=== PATIENT | female | born 1985 | race Caucasian/White ===

== ENCOUNTER 2019-05-17 18:10 | Inpatient (IN) ==
[2019-05-17] MEDS ORDERED: ZOFRAN IV ONE (18:53)
[2019-05-17] MEDS ORDERED: TORADOL IV ONE (18:53)
[2019-05-17 19:02] LABS: BASO# 0.03 X1000 (0.0-0.2); BASO% 0.1 % (0.0-0.8); EOS# 0.01 X1000 (0.0-0.7); HEMATOCRIT 45.7 % (37.0-47.0); HEMOGLOBIN 15.2 g/dL (12.0-16.0); IMM GRAN# 0.12 X1000 (0.0-0.04); IMM GRAN% 0.4 % (0.0-0.5); LYMPH# 0.99 X1000 (1.2-3.4); LYMPH% 3.6 % (20.5-51.1); MCH 29.7 PG (27-31); MCHC 33.3 g/dL (33-37); MCV 89.3 FL (81-99); MONO# 1.84 X1000 (0.11-0.59); MONO% 6.7 % (1.7-9.3); MPV 9.2 FL (7.4-10.4); NEUT# 24.58 X1000 (1.4-6.5); NEUT% 89.2 % (42.2-75.2); PLT 473 X1000 (130-400); RBC 5.12 XMIL (4.2-5.4); RDW 12.5 % (11.5-14.5); WBC 27.57 X1000 (4.8-10.8)
[2019-05-17 19:05] LABS: URINE SOURCE CLEAN CATCH
[2019-05-17 19:08] LABS: BILIRUBIN URINE NEGATIVE (NEGATIVE); BLOOD URINE MODERATE (NEGATIVE); COLOR YELLOW; GLUCOSE URINE NEGATIVE (NEGATIVE); KETONE URINE TRACE mg/dL (NEGATIVE); LEUKOCYTES URINE NEGATIVE (NEGATIVE); NITRITE URINE NEGATIVE (NEGATIVE); PROTEIN URINE 100 mg/dL (NEGATIVE); TURBIDITY URINE HAZY (CLEAR); UROBILINOGEN URINE 2 mg/dL (NORMAL)
[2019-05-17 19:16] LABS: UR EPITHELIAL CELLS >10 /HPF (<10); URINE BACTERIA 3+ /HPF; URINE RBC >40 /HPF (<10); URINE WBC 20-40 /HPF (<10)
[2019-05-17] MEDS ORDERED: NS 1,000 ML IV ONE ×2 (19:17→23:17)
--- NOTE | 2019-05-17 19:29 | PROVIDER DOCUMENTATION ---
This chart was entered by Hemalatha Hennessy Scribe, acting as scribe for Roxanne Dumas CRNP. HPI-Abdominal Pain/GI Problem - General Chief Complaint: Abdominal Pain Stated Complaint: ABD PAIN Time Seen by Provider: 05/17/19 18:20 Source: patient Allergies/Adverse Reactions: Patient Allergies Allergy/AdvReac Type Severity Reaction Status Date / Time tramadol Allergy Unknown Verified 01/19/19 00:55 Home Medications: Home Medication List Medication Instructions Recorded Confirmed Last Taken Type NK [No Home Medications] 01/19/19 05/17/19 Unknown History - History of Present Illness-ABD Nature of Presenting Problems: Patient is a 34yo F who presents with complaints of RLQ abdominal pain, nausea, vomiting, and subjective fever that began yesterday. Reports she believes "her umbilical hernia has shifted from throwing up." Patient reports last BM was 2 days ago and was normal. Reports she has been unable to keep food down. States she has previously had a hernia repair with mesh 10 years ago. Denies diarrhea, dysuria, CP, or SOB. Abdominal Pain Onset Location: reports: RLQ Pain Radiation: reports: no radiation Quality of Pain: reports: pressure, throbbing Severity in ED: reports: moderate Onset/Duration: reports: 24 hours ago Timing: reports: still present Activities at Onset: reports: none Modifying Factors: improves with: nothing Associated Symptoms: reports: fever/chills, nausea, vomiting. denies: chest pain, diarrhea, sensory/motor loss Last BM: 2 days ago Dark Stools Present?: reports: none noticed Rectal Bleeding: reports: none # of Diarrhea Episodes: 0 Rectal Pain: reports: none Emesis Description: reports: clear, other (undigested food) Bruising or Bleeding Gums?: No Similar Symptoms Previously?: Yes Recently seen or treated by another doctor?: No Review of Systems - Adult - REVIEW OF SYSTEMS - ADULT Constitutional: reports: see HPI, fever. denies: chills, fatique, night sweats Eyes: reports: no symptoms reported Ears, Nose, Mouth & Throat: reports: no symptoms reported Cardiovascular: reports: no symptoms reported. denies: chest pain, palpitations Respiratory: reports: no symptoms reported. denies: cough, shortness of breath Gastrointestinal: reports: see HPI, abdominal pain, nausea, vomiting. denies: hematemesis, diarrhea, poor appetite Genitourinary: reports: no symptoms reported. denies: dysuria, discharge, frequency Musculoskeletal: reports: no symptoms reported Integumentary: reports: no symptoms reported Neurological: reports: no symptoms reported Psychiatric: reports: no symptoms reported Endocrine: reports: no symptoms reported Past History - Adult - PAST MEDICAL HISTORY-ADULT Review of Records: reports: Nursing Assessment Review, Medications Reviewed Major Childhood Illnesses: reports: denies history Cardiovascular: reports: denies history Respiratory: reports: denies history Gastrointestinal: reports: denies history Obstetrical/Gynecological: reports: denies history Genitourinary: reports: denies history Musculoskeletal: reports: denies history Neurological: reports: Seizures/Epilepsy Psychiatric: reports: anxiety, bipolar, other (panic attacks, adhd) Endocrine/Immune: reports: denies history Other Conditions: reports: denies history - PRIOR SURGERIES/PROCEDURES Surgical/Procedure History: reports: reviewed, not pertinent - PRIOR HOSPITALIZATIONS Prior Hospitalizations: reports: none - IMMUNIZATION STATUS Childhood Immunizations: See Nurse Assessment Flu Vaccine: See Nurse Assessment - FAMILY HISTORY Family History: reviewed, not pertinent - SOCIAL HISTORY Smoking: cigarettes, greater than 1 pack/day Provider spent 3-5 mins advising pt. on dangers of tobacco.: Discussed manners to quit use, and f/u contacts for add'l counseling. Substance Use: amphetamines (IV user; last use 7 days ago) Physical Exam-General - PHYSICAL EXAM-ADULT Initial Vital Signs Reviewed: Yes - CONSTITUTIONAL General Appearance: alert, mild distress. negative: lethargic, slow to respond, obtunded - EYES Eyes: PERRL/EOMI, pink conjunctivae. negative: EOM palsy - HEAD, EARS, NOSE, MOUTH & THROAT HENMT: normocephalic/atraumatic, moist mucous membranes - NECK Neck: non-tender, full range of motion, supple, normal inspection - RESPIRATORY Respiratory: chest non-tender, lungs clear, normal breath sounds, no pleuratic chest pain, no respiratory distress, no accessory muscle use. negative: crackles, rales, rhonchi, stridor, wheezing - CARDIOVASCULAR Cardiovascular: tachycardia (108) - GASTROINTESTINAL (ABDOMEN) Abdominal Exam: normal bowel sounds, soft, no pulsatile mass, tenderness (RLQ TTP), hernia, McBurney's point tenderness, Gunn's sign. negative: non tender, distended, rebound, psoas sign, Rovsing's sign - MUSCULOSKELETAL Back Exam: normal inspection Extremity: normal range of motion, non-tender, normal gait, normal inspection - SKIN Integumentary: normal color, warm/dry. negative: cyanosis, jaundice, mottled, pallor - NEUROLOGIC Neurologic: grossly normal, no motor/sensory deficits - PSYCHIATRIC Psych/Mental Status: normal mood/affect, normal thought content, normal thought process, oriented x 3 Progress - PLAN OF CARE/RESULTS Progress/Plan/Lab Results: Vital Signs - 8 hr 05/17/19 18:16 Temperature 97.6 F Pulse Rate 108 H Respiratory Rate 18 Blood Pressure 120/81 O2 Sat by Pulse Oximetry 100 Bedside Urine ED: Urine Bedside Start: 05/17/19 18:34 Freq: ORDERED Status: Active Protocol: Activity Type Activity Date Activity User E-Sign Co-Sign Detail Recorded Client Recorded Date Recorded By Document 05/17/19 18:52 [id number] 05/17/19 18:52 [id number] 05/17/19 18:52 Point of Care [Bedside Point of Care] -Lot # [id number] - Results Negative -Control Line Visible? Yes Orders Category Date Time Status ED: Orthostatic Vital Signs (E DIRECTED Care 05/17/19 18:36 Active ED: Urine Bedside ORDERED Care 05/17/19 18:34 Active Saline Loc NOW Care 05/17/19 18:37 Active CBC WITH ELECTRONIC DIFF [HEME] Stat Lab 05/17/19 18:50 Results COMPREHENSIVE METABOLIC PANEL [CHEM] Stat Lab 05/17/19 18:50 Received LIPASE [CHEM] Stat Lab 05/17/19 18:50 Received URINALYSIS W/POSS RFLX CULT [URINALYSIS] Stat Lab 05/17/19 18:52 Ordered Ketorolac [Toradol] Med 05/17/19 18:53 Discontinued 30 mg IV NOW ONE Ondansetron [Zofran] Med 05/17/19 18:53 Discontinued 4 mg IV NOW ONE 1849: Patient requests something for pain, however reports she previously was addicted to opiates and requests a non-opioid medication. 2040: Lab results, imaging results, and need for admission discussed with patient who agrees with and verbalizes understanding. Result Diagrams: 05/17/19 19:18 05/17/19 18:50 - REASSESSMENT Reassessment #1 Time Reassessed: 19:59 Status: worsening Reassessment Comment: Pt reports pain has not improved post Toradol; requests other meds - XRAY 1 XRAY Study: Chest Impression: Normal, See EMR Report ( CHEST-1 VIEW - 05/17/2019 INDICATION: SEPSIS PROTOCOL COMPARISON: 12/19/2018 FINDINGS: The lungs are normally expanded and clear. Heart size and mediastinal contours are normal. No pn eumothorax or pleural effusion. IMPRESSION: Negative exam. Electronically signed by Syed Hernandez 05/17/2019 8:29 PM 05/17/192028) - CT/MRI 1 CT Study: Abdomen, Pelvis Impression: See EMR Report ([facility] - [address] , [address] [address] [facility] - [address] [place] [address] Department of Imaging Patient: PRIETO MELCHORADM Date: 05/17/19MR#: [id number] : 1985ADM Status: REG [facility]#: [id number] Age/Sex: 34/FRoom/Bed: Loc: P.ED Ordering Physician: Roxanne Sung Family Physician: None,PCP Reason for Procedure: RLQ abdominal pain; nausea/vomiting Signed CT ABD/PELVIS W/IV CONT ONLY - 05/17/2019 INDICATION: RLQ abdominal pain; nausea/vomiting COMPARISON: None FINDINGS: The lung bases are clear and the heart size is normal. The gallbladder is very distended with wall thickening and surrounding free fluid. There is moderate fluid distention of the stomach. There is a small fat- containing umbilical ventral hernia. There is a small amount of pelvic free fluid. There is moderate constipation. There is an IUD in the uterus. This appears to be in good position. Urinary bladder and rectum are normal. Bones are intact. IMPRESSION: 1. Acute cholecystitis. 2. Small fat-containing epigastric ventral hernia. 3. Moderate constipation. Trace pelvic free fluid, nonspecific. 4. This report was discussed with Prieto Dumas on 05/17/2019 at 8:40 PM and was readback. This exam was performed using automated exposure control, adjustment of mA or kV according to patient size, and/or use of iterative reconstruction technique Electronically signed by Syed Hernandez 05/17/2019 8:41 PM 05/17/192040 Interpreting Physician: Syed Hernandez MD Dictated Date/Time: 05/17/192028 cc: Roxanne Dumas; None,PCP) - CONSULTS/PCP/HOSPITALIST Notification #1 *Consult/PCP/Hospitalist*: Dr. Hernandez/Radiology Time Discussed: 20:42 Reason/Comments: CT results discussed - acute cholecystitis Consult Disposition: other (CT results discussed) #2 Consult: Dr. Morse, Surgeon Time Discussed: 20:49 Reason/Comments: Acute cholecystitis on CT; leukocytosis Consult Disposition: other (Will evaluate CT and call back) #3 Consult: Dr. Morse, Surgeon Time Discussed: 21:05 Reason/Comments: discussed pt being transferred to [facility], will call hospitalist at [facility]. Consult Disposition: other (Requests Zosyn q6hr; pain medication; states he will operate in the morning) Departure - Departure Date of Disposition Decision: 05/17/19 Time of Disposition Decision: 21:40 DIAGNOSIS: Acute cholecystitis, Amphetamine user Leukocytosis, unspecified Qualifiers: Leukocytosis type: unspecified Qualified Code(s): D72.829 - Elevated white blood cell count, unspecified UTI (urinary tract infection) Qualifiers: Urinary tract infection type: acute cystitis Hematuria presence: with hematuria Qualified Code(s): N30.01 - Acute cystitis with hematuria Disposition: ADMITTED INPATIENT 09 Certified Medical Emergency: Emergent Condition: Stable - Critical Care Note This patient required my direct & personal management of CC.: No Attestation - Physician/ MARY ANN Attestation Patient care was provided by Advanced Practice Provider:: Yes Advanced Practice Provider:: Roxanne Dumas Advanced Practice Provider documentation review:: The Mid-level provider documentation, treatment plan and medical decision making was reviewed by the physician who agrees with all treatment and medical decision making by the MLP. The physician spent face to face time with patient:: No Advanced Practice Provider documentation review:: Supervising physician onsite and consulted in the evaluation and care of this patient. The physician did not have a face to face encounter with the patient. Additional Progress - ADDITIONAL CONSULTS #4 Consult: Dr. Stahl, Hospitalist Time Discussed: 21:38 Reason/Comments: Acute cholecystitis Consult Disposition: Admit (Consult Dr. Morse for surgery) This chart was documented by the indicated scribe, (Hemalatha Hennessy Scribe) and accurately reflects the services I performed and decisions made by , Rxoanne Dumas CRNP, as attested by the provider's signature.
[2019-05-17 19:44] LABS: BASO# 0.03 X1000 (0.0-0.2); BASO% 0.1 % (0.0-0.8); HEMATOCRIT 44.1 % (37.0-47.0); HEMOGLOBIN 14.5 g/dL (12.0-16.0); IMM GRAN# 0.07 X1000 (0.0-0.04); IMM GRAN% 0.3 % (0.0-0.5); LYMPH# 1.14 X1000 (1.2-3.4); LYMPH% 4.1 % (20.5-51.1); MCH 29.4 PG (27-31); MCHC 32.9 g/dL (33-37); MCV 89.3 FL (81-99); MONO# 1.91 X1000 (0.11-0.59); MONO% 6.9 % (1.7-9.3); MPV 8.8 FL (7.4-10.4); NEUT# 24.41 X1000 (1.4-6.5); NEUT% 88.6 % (42.2-75.2); PLT 471 X1000 (130-400); RBC 4.94 XMIL (4.2-5.4); RDW 12.4 % (11.5-14.5); WBC 27.56 X1000 (4.8-10.8)
[2019-05-17 19:48] LABS: AGAP 15; ALBUMIN 4.6 g/dL (3.5-5.0); ALKALINE PHOSPHATASE 75 U/L (32-104); BUN 20 mg/dL (8-22); CALCIUM 9.6 mg/dL (8.8-10.2); CHLORIDE 100 mmol/L (98-107); COSMO 277; CREATININE 0.5 mg/dL (0.5-0.9); ESTIMATED GFR > 60; GLUCOSE 150 mg/dL (70-104); GOT 50 U/L (10-30); GPT 44 U/L (10-36); LIPASE 10 U/L (13-60); POTASSIUM 4.4 mmol/L (3.5-5.1); SODIUM 136 mmol/L (136-145); TCO2 21 mmol/L (25-35); TOTAL PROTEIN 7.5 g/dL (6.3-8.3)
[2019-05-17 19:57] LABS: INR 1.01; PROTIME 13.8 Seconds (11.0-16.0)
[2019-05-17] MEDS ORDERED: MORPHINE IV ONE (19:59)
[2019-05-17] MEDS ORDERED: ROCEPHIN 1 GM in NS 50 ML IV ONE (20:23)
--- NOTE | 2019-05-17 20:32 | Diag Imaging Result Doc PS360 ---
CHEST-1 VIEW - 05/17/2019 INDICATION: SEPSIS PROTOCOL COMPARISON: 12/19/2018 FINDINGS: The lungs are normally expanded and clear. Heart size and mediastinal contours are normal. No pneumothorax or pleural effusion. IMPRESSION: Negative exam. Electronically signed by Syed Hernandez 05/17/2019 8:29 PM
[2019-05-17] MEDS ORDERED: ZOSYN 3.375 GM in NS 50 ML IV ONE (20:42)
--- NOTE | 2019-05-17 20:43 | Diag Imaging Result Doc PS360 ---
CT ABD/PELVIS W/IV CONT ONLY - 05/17/2019 INDICATION: RLQ abdominal pain; nausea/vomiting COMPARISON: None FINDINGS: The lung bases are clear and the heart size is normal. The gallbladder is very distended with wall thickening and surrounding free fluid. There is moderate fluid distention of the stomach. There is a small fat-containing umbilical ventral hernia. There is a small amount of pelvic free fluid. There is moderate constipation. There is an IUD in the uterus. This appears to be in good position. Urinary bladder and rectum are normal. Bones are intact. IMPRESSION: 1. Acute cholecystitis. 2. Small fat-containing epigastric ventral hernia. 3. Moderate constipation. Trace pelvic free fluid, nonspecific. 4. This report was discussed with Linda Dumas on 05/17/2019 at 8:40 PM and was readback. This exam was performed using automated exposure control, adjustment of mA or kV according to patient size, and/or use of iterative reconstruction technique Electronically signed by Syed Hernandez 05/17/2019 8:41 PM
[2019-05-17] MEDS ORDERED: DILAUDID IV PRN (21:58)
[2019-05-17] MEDS ORDERED: NS 1,000 ML IV SCH (22:00)
[2019-05-17] MEDS ORDERED: NS 1,000 ML ONE (22:32)
[2019-05-17 23:05] LABS: UR AMPHETAMINES QUAL PRESUMPTIVE POSITIVE (NONE DETECT); UR BARBITUATES QUAL NONE DETECTED (NONE DETECT); UR BENZODIAZEPIN QUAL PRESUMPTIVE POSITIVE (NONE DETECT); UR CANNABINOIDS QUAL PRESUMPTIVE POSITIVE (NONE DETECT); UR COCAINE QUAL NONE DETECTED (NONE DETECT); UR METHADONE QUAL NONE DETECTED (NONE DETECT); UR METHAMPHETAMINE QUAL PRESUMPTIVE POSITIVE (NONE DETECT); UR OPIATES QUAL NONE DETECTED (NONE DETECT); UR OXYCODONE QUAL NONE DETECTED (NONE DETECT); UR PCP QUAL NONE DETECTED (NONE DETECT); UR PROPOXYPHENE QUAL NONE DETECTED (NONE DETECT); UR TCA QUAL NONE DETECTED (NONE DETECT)
[2019-05-18] MEDS: MORPHINE IV PRN ×5 (00:11→19:38)
[2019-05-18] MEDS: ZOFRAN IV PRN (00:12)
[2019-05-18] MEDS ORDERED: ZOSYN 3.375 GM in NS 50 ML IV SCH (03:00)
[2019-05-18] MEDS: ZOSYN 3.375 GM in NS 50 ML IV SCH ×4 (04:01→21:32)
--- NOTE | 2019-05-18 06:06 | HISTORY AND PHYSICAL ---
CHIEF COMPLAINT: Fever for 2 days. HISTORY OF PRESENT ILLNESS: Ms. Linda Crawley is a 34-year-old female who does not have any significant past medical history, except for anxiety, depression, bipolar disorder, and also substance abuse. She presents to the hospital because of fever for about 2 days following which she also developed pain in the region of periumbilical region which later migrated to the right upper quadrant area. This pain is constant on a scale of 0 to 10. It is 8/10. It is made worse by lying down. She has had associated nausea with vomiting. No diarrhea. No constipation. The patient did have a CT scan of the abdomen and pelvis done which showed evidence of gallbladder that is very distended with wall thickening, and also surrounding free fluid. The patient initially presented to [facility], but has been transferred down to [facility] for further management. PAST MEDICAL HISTORY: Anxiety disorder as well as a bipolar disorder. SOCIAL HISTORY: She smokes cigarettes. MEDICATIONS: She uses methamphetamine. Does not use alcohol. ALLERGIES: She is allergic to tramadol. PAST SURGICAL HISTORY: She has had surgery in the periumbilical area (hernia repair). FAMILY HISTORY: Positive for cancer as well as diabetes. MEDICATIONS: She takes Neurontin 100 mg p.o. twice a day. REVIEW OF SYSTEMS: Constitutional: She has fever, PEDIATRIC CNS: No headaches. Eyes: No blurred vision. ENT: No sinus problems. Cardiovascular: No chest pain. Respiratory: She has shortness of breath. : No dysuria. Musculoskeletal: No joint pains. Dermatology: No skin lesions. Hematology: No bleeding problems. Psychiatric: She has anxiety with depression as well as bipolar disorder. Endocrine: No thyroid disease or diabetes. Allergy/Immunology: No symptoms of allergic rhinitis. PHYSICAL EXAMINATION: VITAL SIGNS: Temperature 98.1 degrees, pulse 114, respiratory rate 20, blood pressure 121/76, and O2 saturation is 99%. HEENT: Atraumatic, normocephalic. She is anicteric. Extraocular movements intact. No oral lesions. NECK: No lymphadenopathy or thyromegaly. CARDIOVASCULAR: S1, S2. RESPIRATORY: There is evidence of good air entry bilaterally. ABDOMEN: Soft. She has tenderness in the right upper quadrant area. No masses felt. EXTREMITIES: No evidence of edema. CENTRAL NERVOUS SYSTEM: No obvious focal deficit noted. LABORATORY DATA: WBC 27.56, hematocrit 44.1, platelets 471,000, and INR is 1.01. Sodium is 136, potassium 4.4, chloride 100, bicarb is 21, BUN is 20, creatinine 0.5, and glucose is 150. AST 50, ALT is 44. Lipase is 10. UA shows a moderate amount of blood 20 to 40 WBCs per high-power field. Urine drug screen positive for methamphetamine as well as benzodiazepine as well as cannabinoids. CT scan of the abdomen and pelvis shows evidence of acute cholecystitis. Small fat containing epigastric ventral hernia. Moderate constipation. Trace pelvic free fluid. ASSESSMENT AND PLAN: 1. Acute cholecystitis. Maintain patient NPO and IV fluids/ antibiotics. Optimize pain control. Place patient on antiemetic. Consult with Surgery for cholecystectomy. 2. Small fat containing epigastric ventral hernia. Consult with Surgery. 3. Substance abuse, aware. Need counseling concerning abstinence. 4. Urinary tract infection. Obtain urine and blood cultures. Start patient on empiric antibiotics. 5. Abnormal liver function tests. Check hepatitis panel as well as abdominal ultrasound. 6. Leukocytosis most likely secondary to acute cholecystitis. 7. Hyperglycemia. Check hemoglobin A1c. 8. Deep vein thrombosis prophylaxis. Sequential compression devices. 9. Gastrointestinal prophylaxis. Proton pump inhibitor. cc: Ricky Stahl MD MTDD
[2019-05-18 06:44] LABS: BASO# 0.02 X1000 (0.0-0.2); BASO% 0.1 % (0.0-0.8); EOS# 0.04 X1000 (0.0-0.7); EOS% 0.2 % (0.0-10.0); HEMATOCRIT 40.4 % (37.0-47.0); IMM GRAN# 0.06 X1000 (0.0-0.04); IMM GRAN% 0.3 % (0.0-0.5); LYMPH# 1.66 X1000 (1.2-3.4); LYMPH% 9.3 % (20.5-51.1); MCH 29.3 PG (27-31); MCHC 32.2 g/dL (33-37); MCV 91.2 FL (81-99); MONO# 1.24 X1000 (0.11-0.59); MONO% 6.9 % (1.7-9.3); MPV 8.8 FL (7.4-10.4); NEUT# 14.83 X1000 (1.4-6.5); NEUT% 83.2 % (42.2-75.2); PLT 368 X1000 (130-400); RBC 4.43 XMIL (4.2-5.4); RDW 12.5 % (11.5-14.5); WBC 17.85 X1000 (4.8-10.8)
[2019-05-18 07:15] LABS: AGAP 9; ALB/GLOB RATIO 1.5; ALBUMIN 3.6 g/dL (3.5-5.0); ALKALINE PHOSPHATASE 100 U/L (32-104); BUN 13 mg/dL (8-22); CALCIUM 8.6 mg/dL (8.8-10.2); CHLORIDE 100 mmol/L (98-107); COSMO 271; CREATININE 0.6 mg/dL (0.5-0.9); ESTIMATED GFR > 60; GLUCOSE 121 mg/dL (70-104); GOT 141 U/L (10-30); GPT 170 U/L (10-36); POTASSIUM 3.7 mmol/L (3.5-5.1); SODIUM 135 mmol/L (136-145); TCO2 26 mmol/L (25-35)
--- NOTE | 2019-05-18 09:13 | GENERAL SURGERY CONSULTATION ---
DATE: 05/18/2019 CHIEF COMPLAINT: Right upper quadrant pain and tenderness. HISTORY OF PRESENT ILLNESS: This is a 34-year-old, white female, who has had a 2 to 3-day history of right upper quadrant pain and fever. She has also had vomiting. She presented to the emergency department last night. CT scan shows a very dilated gallbladder with thickened cabrales and pericholecystic inflammation. The ultrasound supported that finding. PAST MEDICAL HISTORY: She has a past medical history of anxiety disorder, bipolar disorder. HOME MEDICATIONS: She has no known home medications. ALLERGIES: She is allergic to tramadol. SOCIAL HISTORY: She is an admitted illicit drug user. She does use methamphetamines. She apparently has a drug screen positive for benzodiazepines and cannabinoids as well. She denies alcohol usage. PAST SURGICAL HISTORY: Includes a hernia repair at the umbilicus by Dr. Paul many years ago. FAMILY HISTORY: Pertinent for cancer and diabetes. REVIEW OF SYSTEMS: Negative in all 10 subsystems, except for the psychiatric, which she reports as having anxiety, occasional depression, and bipolar disorder. PHYSICAL EXAMINATION: Vital Signs: Her temperature is 99.6 degrees, heart rate 98, blood pressure 124/72, respiratory rate 21. Neck: No cervical adenopathy. Lungs: Bilateral breath sounds. Heart: Regular rate and rhythm. Abdomen: She is exquisitely tender in the right upper quadrant. She does have a supraumbilical hernia that is reducible. Extremities: No peripheral edema. Neurologic: She is awake and alert. LABORATORY DATA: Her white count yesterday was 27,000. Today, it is 18,000 with a left shift. Her total bilirubin is 1.2, AST up to 141, ALT up to 170, alkaline phosphatase is 100. ASSESSMENT: Acute cholecystitis. PLAN: Laparoscopic cholecystectomy, if possible. I discussed the fact that she might have to have an open procedure. We discussed the benefits and risks. She understands and she wants to proceed. cc: Campos Morse MD
[2019-05-18] MEDS ORDERED: SODIUM CHLORIDE 0.9% ONE (09:24)
[2019-05-18] MEDS ORDERED: SENSORCAINE-MPF 0.5%/EPI 1:200,000 ONE (09:24)
[2019-05-18] MEDS ORDERED: LR 1,000 ML ONE (09:24)
[2019-05-18] MEDS ORDERED: DIPRIVAN 1% ONE (09:39)
[2019-05-18] MEDS ORDERED: ZOFRAN ONE (09:39)
[2019-05-18] MEDS ORDERED: QUELICIN (DOSE) ONE (09:39)
[2019-05-18] MEDS ORDERED: XYLOCAINE-MPF 2% ONE (09:39)
[2019-05-18] MEDS ORDERED: DECADRON ONE (09:39)
[2019-05-18] MEDS ORDERED: ZEMURON ONE ×2 (09:39→10:51)
[2019-05-18] MEDS ORDERED: FENTANYL ONE ×2 (09:44→10:58)
[2019-05-18] MEDS ORDERED: PRECEDEX ONE (10:00)
--- NOTE | 2019-05-18 10:57 | Diag Imaging Result Doc PS360 ---
US ABDOMEN-COMPLETE - 05/17/2019 INDICATION: cholecystitis COMPARISON: CT from earlier 05/17/2019 FINDINGS: There is some amorphous echogenic material in the gallbladder as well as some shadowing stones. There is gallbladder distention and wall thickening. There is some free fluid around the gallbladder and pancreas. Common bile duct measures 3 mm. There are bilateral renal cysts. Otherwise both kidneys are normal. The liver and spleen are normal. Spleen size is 11.1 x 3.6 x 11.1 cm. Sonographic Gunn sign is positive. Aorta, IVC, and main portal vein are patent. IMPRESSION: 1. Cholecystitis. 2. Nonspecific edema/fluid around the gallbladder and pancreas. Electronically signed by Syed Hernandez 05/18/2019 10:55 AM
[2019-05-18] MEDS ORDERED: NEOSTIGMINE ONE (11:00)
[2019-05-18] MEDS ORDERED: ROBINUL ONE (11:01)
[2019-05-18] MEDS ORDERED: BRIDION ONE (11:30)
--- NOTE | 2019-05-18 12:07 | OPERATIVE NOTE ---
PROCEDURE DATE: 05/18/2019 PROCEDURE PERFORMED: Laparoscopic cholecystectomy with operative cholangiogram. SURGEON: Campos Morse MD. TURBO GENERATOR OILER: Stef PREOPERATIVE DIAGNOSIS: Acute calculous cholecystitis. POSTOPERATIVE DIAGNOSIS: Acute calculous cholecystitis. FINDINGS: The cholangiogram revealed a normal size common duct, free flow in the duodenum. No intraluminal filling defects were seen. There was peritonitis upon entering the abdominal cavity. DESCRIPTION OF PROCEDURE: After satisfactory general endotracheal anesthesia achieved, abdomen is prepped and draped in a sterile fashion. The patient had previous umbilical hernia surgery with repair of a hernia. She has a recurrent hernia. So, we chose to go in the mid epigastrium first. We anesthetized the skin with local and then made a vertical incision, used 11 trocar Optiview technique to enter the abdominal cavity. We insufflated through this trocar. Under direct visualization, we introduced a 5 trocar at midclavicular line, a 5 trocar near the anterior axillary line, and an 11 mm trocar to the left of the midline in order to gain access to the right upper quadrant and the gallbladder. There was quite a bit of biliary peritonitis and cloudy fluid. We were able to take the omentum off the fundus. We then were able to introduce the aspirating needle and decompress the gallbladder which was very distended and thick walled. After that, we were able to grasp it with a ratcheted Allis grasper and reflect it cephalad. A large stone was noted in the infundibulum. We used a bulldog to grasp the infundibulum. We then bluntly dissected the tissue around the triangle. We did this until we obtained a critical view. We then clipped the cystic duct near the junction of the gallbladder, incised the cystic duct, introduced a Reggie catheter, shot a cholangiogram using a Reggie catheter. The findings above were noted. We removed the cholangiogram catheter, clipped the cystic duct on the opposite side of cystic ductotomy x2 and then transected it. The cystic artery was clipped proximally x2 and divided. We used the cautery spatula to then dissect the gallbladder away from the liver. After completely the gallbladder from liver, we placed the EndoCatch, placed the gallbladder within the bag and then had to enlarge the fascial incision in the supraumbilical trocar site to remove the gallbladder in the bag. We replaced the 11 trocar, used Xeroform to close the defect enough to reinsufflate. We then looked back, and we then irrigated and aspirated, even using a 10 mm suction to evacuate all the subhepatic fluid and blood. Hemostasis was satisfactory. We then used a Christopher drain and passed it through the epigastric trocar site, out the anterior axillary line trocar site and placed it in the subhepatic space. We secured it to the skin with 3-0 nylon. We then desufflated and removed our trocars under direct visualization. We used 2-0 Polysorb fascial stitches to close the fascia in the supraumbilical trocar site as well as the epigastric trocar site. We then closed the skin at each incision with 4-0 Polysorb subcuticular stitches. Sterile OpSites were applied. She tolerated it well and was sent to the recovery room in satisfactory condition. cc: Campos Morse MD
--- NOTE | 2019-05-18 12:12 | Diag Imaging Result Doc PS360 ---
OPERATIVE CHOLANGIOGRAM - 05/18/2019 INDICATION: CHOLECYSTECTOMY TECHNIQUE: The exam was performed by the patient's surgeon. One image was obtained. COMPARISON: Ultrasound from 05/17/2019 FINDINGS: Contrast was infused into the cystic duct. This outlines a normal common bile duct. No strictures or filling defects. There is some passage of contrast into the duodenum. IMPRESSION: No complication. Electronically signed by Syed Hernandez 05/18/2019 12:10 PM
[2019-05-18] MEDS: ATIVAN IV PRN ×2 (14:56→19:38)
--- NOTE | 2019-05-18 16:55 | PROGRESS NOTE ---
DATE: 05/18/2019 SUBJECTIVE: This patient is lying comfortably in bed. She is status post laparoscopic cholecystectomy with operative cholangiogram. At this moment, she is not complaining of too much pain, bowel sounds are present but a little bit decreased, surgery department on board. OBJECTIVE: Vital Signs: Temperature 100.7 degrees, pulse 110, respiratory rate 19, blood pressure 100/54, oxygen saturation 99 on room air. HEENT: Head normocephalic, no trauma. PERRLA. Neck: Supple. No JVD. No masses. Central trachea. Chest: Clear to auscultation. No wheezing. No rales. Abdomen: Soft, slightly distended. Positive bowel sounds but decreased. She does have a drain coming out from the right side of her belly, and multiple small scars from a laparoscopic procedure. Extremities: No edema. No clubbing, no cyanosis. Neurological: The patient is awake, alert, and oriented x3. No focal deficits. LABORATORY: hemoglobin 13, hematocrit 40.4, platelets 368,000. Sodium 135, potassium 3.7, chloride 100, bicarbonate 26, BUN 13, creatinine 0.6, glucose 121, calcium 8.6, AST 141, ALT 170, alkaline phosphatase 100. ASSESSMENT AND PLAN: 1. Acute calculous cholecystitis status post laparoscopic cholecystectomy with operative cholangiogram. Cholangiogram revealed a normal-sized common duct, free flow in the duodenum. No intraluminal filling defects were seen, there was peritonitis upon entering the abdominal cavity. 2. Peritonitis, continue with IV antibiotics. She has been placed on a diet but I will put her on gentle intravenous fluids until she is able to eat better. 3. Polysubstance abuse, this patient tested positive for amphetamine, methamphetamine, benzodiazepines and cannabinoids. She does not have a primary care doctor, this patient has been highly advised against drug use. I will continue with daily cessation education. 4. Tobacco abuse. This patient also has been advised against tobacco use. I will continue with daily cessation education as well. 5. Leukocytosis likely due to #1 and 2. 6. Abnormal LFTs. We have requested the hepatitis profile, we will monitor on that, but probably this is secondary to the acute cholecystitis, but since she has a history of drug use, we need to rule out hepatitis. 7. Possible urinary tract infection. Aware. cc: Aubrey Paz MD [facility]
[2019-05-18] MEDS: NORCO-10 PO PRN ×2 (18:56→22:51)
[2019-05-18] MEDS: D5 1/2 NS 1,000 ML IV SCH ×2 (19:01→23:52)
[2019-05-18] MEDS ORDERED: NICODERM PATCH TD ONE (23:15)
[2019-05-19] MEDS: ZOFRAN IV PRN ×2 (00:09→18:31)
[2019-05-19] MEDS: ATIVAN IV PRN ×4 (00:09→23:47)
[2019-05-19] MEDS: MORPHINE IV PRN ×3 (00:09→08:39)
[2019-05-19] MEDS: ZOSYN 3.375 GM in NS 50 ML IV SCH ×4 (04:06→21:21)
[2019-05-19 07:17] LABS: AGAP 12; ALB/GLOB RATIO 1.3; ALBUMIN 3.7 g/dL (3.5-5.0); ALKALINE PHOSPHATASE 112 U/L (32-104); BUN 11 mg/dL (8-22); CHLORIDE 99 mmol/L (98-107); COSMO 274; CREATININE 0.6 mg/dL (0.5-0.9); ESTIMATED GFR > 60; GLUCOSE 114 mg/dL (70-104); GOT 49 U/L (10-30); GPT 113 U/L (10-36); POTASSIUM 3.5 mmol/L (3.5-5.1); SODIUM 137 mmol/L (136-145); TCO2 26 mmol/L (25-35); TOTAL BILIRUBIN 0.67 mg/dL (0.20-1.00); TOTAL PROTEIN 6.6 g/dL (6.3-8.3)
[2019-05-19 07:36] LABS: BASO# 0.01 X1000 (0.0-0.2); BASO% 0.1 % (0.0-0.8); EOS# 0.02 X1000 (0.0-0.7); EOS% 0.1 % (0.0-10.0); HEMATOCRIT 37.3 % (37.0-47.0); HEMOGLOBIN 11.9 g/dL (12.0-16.0); IMM GRAN# 0.04 X1000 (0.0-0.04); IMM GRAN% 0.3 % (0.0-0.5); LYMPH# 1.98 X1000 (1.2-3.4); LYMPH% 12.8 % (20.5-51.1); MCH 29.8 PG (27-31); MCHC 31.9 g/dL (33-37); MCV 93.5 FL (81-99); MONO# 0.82 X1000 (0.11-0.59); MONO% 5.3 % (1.7-9.3); MPV 9.3 FL (7.4-10.4); NEUT# 12.65 X1000 (1.4-6.5); NEUT% 81.4 % (42.2-75.2); PLT 438 X1000 (130-400); RBC 3.99 XMIL (4.2-5.4); RDW 12.5 % (11.5-14.5); WBC 15.52 X1000 (4.8-10.8)
[2019-05-19] MEDS: PERIDEX MT SCH ×2 (08:44→21:21)
[2019-05-19] MEDS: NICODERM PATCH TD SCH (08:44)
--- NOTE | 2019-05-19 13:40 | PROGRESS NOTE ---
DATE: 05/19/2019 SUBJECTIVE: The patient is lying comfortably in bed. She is still complaining of pain, especially on the right side. She has a drain coming out with serosanguineous discharge. She does have some bowel sounds, and she has been apparently passing some gas. OBJECTIVE: Vital Signs: Temperature 98.5 degrees, pulse 121, respiratory rate 14, blood pressure 120/68, oxygen saturation 100% on room air. HEENT: Head normocephalic, no trauma, PERRLA. Neck: Supple. No JVD. No masses. Central trachea. Chest: Clear to auscultation. No wheezing. No rales. Abdomen: Soft. Slightly distended. Positive bowel sounds, but decreased. She does have a drain coming out from the right side of the abdomen with serosanguineous discharge. She has multiple small scars from the laparoscopic procedure. They do not look infected. Extremities: No edema, no clubbing, no cyanosis. Neurological: The patient is awake, alert, and oriented x3. No focal deficits. LABORATORY DATA: WBC 15.5, hemoglobin 11.9, hematocrit 37.3, platelets 438,000. Sodium 137, potassium 3.5, chloride 99, bicarbonate 26, BUN 11, creatinine 0.6, glucose 110, calcium 9, AST 49, ALT 113, alkaline phosphatase 112. ASSESSMENT AND PLAN: 1. Acute calculous cholecystitis, status post laparoscopic cholecystectomy with operative cholangiogram, which did not show any abnormality. Cholangiogram revealed a normal-sized common duct, free flow in the duodenum, no intraluminal filling defects were seen. There was peritonitis upon entering the abdominal cavity. Continue with antibiotics. 2. Peritonitis. Continue with IV antibiotics. She has been placed on a diet and she is tolerating this. 3. Polysubstance abuse. This patient has been tested positive for amphetamine, methamphetamine, benzodiazepine, and cannabinoids. She does not have a primary care doctor. She has been highly advised against recreational drug use. I will continue with daily cessation education. 4. Tobacco abuse. This patient also has been advised against tobacco use. I will continue with daily cessation education. 5. Leukocytosis, likely secondary to acute calculous cholecystitis or peritonitis. 6. Abnormal liver function tests. I have requested a hepatitis profile, but likely this is due to her cholecystitis, but given her history of drug use I would like to rule it out. 7. Possible urinary tract infection, aware. cc: Aubrey Paz MD
[2019-05-19] MEDS: D5 1/2 NS 1,000 ML IV SCH ×2 (15:45→22:27)
[2019-05-19] MEDS: NORCO-10 PO PRN ×2 (17:44→23:47)
--- NOTE | 2019-05-19 20:00 | GENERAL SURGERY PROGRESS NOTE ---
DATE: 05/19/2019 She has some abdominal distention. She is tympanitic. She is nauseated. She has no fever, however. Hemodynamics are good. Her white count is 15,500 today. Her LFTs are better. ASSESSMENT: She is improved, but she is not yet ready for discharge. She has an ileus. We will recheck her labs tomorrow. Gave her something for nausea tonight. cc: Campos Morse MD
[2019-05-20] MEDS: ZOSYN 3.375 GM in NS 50 ML IV SCH ×3 (02:13→14:54)
[2019-05-20] MEDS: D5 1/2 NS 1,000 ML IV SCH (03:50)
[2019-05-20] MEDS: NORCO-10 PO PRN ×3 (03:50→13:39)
[2019-05-20] MEDS: ATIVAN IV PRN ×3 (03:50→13:40)
[2019-05-20 07:14] LABS: BASO# 0.02 X1000 (0.0-0.2); BASO% 0.2 % (0.0-0.8); EOS# 0.11 X1000 (0.0-0.7); EOS% 1.3 % (0.0-10.0); HEMATOCRIT 35.1 % (37.0-47.0); HEMOGLOBIN 11.3 g/dL (12.0-16.0); IMM GRAN# 0.02 X1000 (0.0-0.04); IMM GRAN% 0.2 % (0.0-0.5); LYMPH# 2.02 X1000 (1.2-3.4); LYMPH% 24.5 % (20.5-51.1); MCH 29.9 PG (27-31); MCHC 32.2 g/dL (33-37); MCV 92.9 FL (81-99); MONO# 0.46 X1000 (0.11-0.59); MONO% 5.6 % (1.7-9.3); MPV 8.6 FL (7.4-10.4); NEUT# 5.62 X1000 (1.4-6.5); NEUT% 68.2 % (42.2-75.2); PLT 429 X1000 (130-400); RBC 3.78 XMIL (4.2-5.4); RDW 12.3 % (11.5-14.5); WBC 8.25 X1000 (4.8-10.8)
[2019-05-20 07:32] LABS: AGAP 9; ALB/GLOB RATIO 1.2; ALBUMIN 3.3 g/dL (3.5-5.0); ALKALINE PHOSPHATASE 76 U/L (32-104); BUN 8 mg/dL (8-22); CALCIUM 8.8 mg/dL (8.8-10.2); CHLORIDE 101 mmol/L (98-107); COSMO 273; CREATININE 0.5 mg/dL (0.5-0.9); ESTIMATED GFR > 60; GLUCOSE 80 mg/dL (70-104); GOT 27 U/L (10-30); GPT 73 U/L (10-36); SODIUM 138 mmol/L (136-145); TCO2 28 mmol/L (25-35); TOTAL BILIRUBIN 0.25 mg/dL (0.20-1.00)
[2019-05-20] MEDS: PERIDEX MT SCH (07:59)
[2019-05-20] MEDS: NICODERM PATCH TD SCH (07:59)
--- NOTE | 2019-05-20 08:23 | GENERAL SURGERY PROGRESS NOTE ---
DATE: 05/20/2019 She is better today. Her abdomen is less distended. Her nausea is resolved. Today I will remove her drain. Her white count is down to 8000. I think she will be able to go home later today on p.o. antibiotics. cc: Campos Morse MD
[2019-05-20 11:39] LABS: HEPATITIS PROFILE ACUTE SEE COMMENTS
[2019-05-20 15:23] VITALS: BP 134/69
[2019-05-20] MEDS ORDERED: FLU VACCINE IM ONE (17:38)
[2019-05-20] MEDS ORDERED: PNEUMOVAX 23 IM ONE (17:39)
--- NOTE | 2019-05-20 19:09 | DISCHARGE SUMMARY ---
ADMISSION DATE: 05/17/2019 DISCHARGE DATE: 05/20/2019 DISCHARGE DIAGNOSES: 1. Acute calculous cholecystitis status post laparoscopic cholecystectomy with operative cholangiogram. 2. Peritonitis. 3. Polysubstance abuse. 4. Tobacco abuse. 5. Elevated liver function tests with a positive result for hepatitis C. PROCEDURES PERFORMED: 1. Chest x-ray dated 05/17/2019 - Impression: Negative exam. 2. Abdomen and pelvis CT scan dated 05/17/2019 - Impression: Acute cholecystitis, small fat- containing epigastric ventral hernia, moderate constipation, trace pelvic free fluid, nonspecific. 3. Abdomen ultrasound dated 05/17/2019 - Impression: Cholecystitis, nonspecific edema/fluid around the gallbladder and pancreas. CONSULTATIONS: Surgery Department, Dr. Morse. HOSPITAL COURSE: A 34-year-old female with a past medical history of anxiety, depression, bipolar disorder, and polysubstance abuse. She presented to the emergency department and was admitted on 05/17/2019 after having a fever for 2 days and also pain at the level of the periumbilical area, which later migrated to the right upper quadrant, intensity 8/10, worse by lying down, associated with nausea and vomiting. No diarrhea, no constipation. The patient did have a CT scan of the abdomen and pelvis done that showed cholecystitis. Initially the patient presented to [facility] and was transferred down to [facility]. After checking her abdomen and pelvis CT scan and ultrasound, the Surgery Department evaluated this patient, and they decided to go ahead and do an intervention on this patient since she was having cholecystitis. She was in the OR on 05/18/2019 because of acute calculous cholecystitis, and they did a laparoscopic cholecystectomy with operative cholangiogram which was basically not showing any obstruction, with free flow in the duodenum. The patient was recovering slowly. She has been passing a lot of gas,. She is tolerating her diet,. Her leukocytosis resolved. Initially it was 27,000, and now it is 8000. Her elevated LFTs are getting much better, but since she has a history of polysubstance abuse, I requested a hepatitis profile, and it came back positive for hepatitis C. Today I talked to the patient about this, and I have ordered a hepatitis C genotype and viral load, so she can follow up as an outpatient with the Gastroenterology Department. I talked to the patient about it, and she agreed with that. This patient seems to be really anxious, and she has been taking anxiety medication for a very long time. I will avoid any kind of benzodiazepines on this patient. I will go ahead and give her a low dose of hydroxyzine. For pain management, we will go ahead and ask and give her some ibuprofen. I will continue with antibiotics to complete 10 days with Augmentin, and I will continue with gabapentin, which apparently she was taking before at home at a low dose. This patient seems to be doing much better. She is completely awake, alert, and oriented x3. Her fiance/boyfriend was at the bedside, and all their questions were answered. She actually has an appointment to be seen again by the Surgery Department on 06/02/2019 at 1 p.m. At the moment of discharge, this patient was in a stable medical condition. PHYSICAL EXAMINATION: Temperature 98.3, pulse 114, respiratory rate 18, blood pressure 134/69, oxygen saturation 100% on room air. HEENT: Head normocephalic, no trauma. PERRLA. Neck: Supple. No JVD. No masses. Central trachea. Chest: Clear to auscultation. No wheezing. No rales. Abdomen: Soft, slightly distended. Positive bowel sounds. Her drain was has been removed already, and she seems to be doing fine. She has multiple small scars from the laparoscopic procedure. They do not look infected. No bleeding. Extremities: No clubbing, no cyanosis. Neurological: The patient is awake, alert. She is oriented x3. No focal deficits. LABORATORY: WBCs 8.2, hemoglobin 11.3, hematocrit 35.1, platelets 429. Sodium 138, potassium 4, chloride 101, bicarbonate 28, BUN 8, creatinine 0.5, glucose 80 calcium 8.8. AST 27, ALT 73, alkaline phosphatase 76, albumin 3.3. DISCHARGE MEDICATIONS: 1. Augmentin 875/125 mg 1 tablet every 12 hours to complete 10 days. 2. Gabapentin 800 mg p.o. t.i.d. hydroxy seen 10 mg p.o. every 8 hours as needed for anxiety. 3. Ibuprofen 800 mg p.o. every 8 hours as needed. FOLLOWUP: Follow up with Dr. Morse on 06/02/2019 at 1 p.m. Also, she will need to follow up with Dr. Zazueta, who is one of our Gastroenterology Department physicians, in 2 to 3 weeks. She will need to call for an appointment. Also, she will need to find a PCP and follow up with this doctor in 1 week. TIME SPENT: Time spent discussing all the results and doing the discharge summary with this patient was about 25 minutes. cc: Aubrey Paz MD
[2019-05-24 07:59] LABS: HEPATITIS C GENOTYPE SEE COMMENTS
[2019-05-24 11:47] LABS: HCV BY PCR SEE COMMENTS
== END 2019-05-20 18:06 | disposition home or self-care (01) | DRG 417 ==
LOC: P.ED 18:10 → SUATTDRO 22:12 → 4N 22:12
PROVIDERS: ATTEND Internal Medicine